=== PATIENT | male | born 1995 | race Asian ===

== ENCOUNTER 2016-12-15 19:55 | Emergency (ER) | payer OTHER, BC ==
[~2016-12-15] VITALS: Ht 172.7 cm; Wt 64.1 kg
[2016-12-15 20:07] VITALS: Ht 172.7 cm; Wt 64.1 kg
[2016-12-15] MEDS ORDERED: XYLOCAINE 1%/SOD BICARB 20 ML VIAL INFIL ONE (20:30)
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
--- NOTE | 2016-12-15 21:51 | DIAGNOSTIC IMAGING REPORT ---
CT HEAD WITHOUT CONTRAST (CT) CLINICAL HISTORY: Closed head injury with loss of consciousness. COMPARISON STUDY: No previous studies for comparison. TECHNIQUE: Axial CT of the brain is performed from the vertex to the skull base. IV contrast was not administered for this examination. CT DOSE: FINDINGS: No intra or extra-axial mass lesions are visualized. There is no CT evidence of acute cortical infarction. There is no evidence of midline shift. There is no acute hemorrhage. No calvarial fractures are visualized. There is no evidence of pathologic ventricular dilatation. There is a prominent cisterna magna. There is a small right maxilla sinus air-fluid level. IMPRESSION: 1. Small right maxillary sinus air-fluid level. 2. No acute intracranial findings. Electronically signed by: Eduardo Zaragoza M.D. 12/15/2016 9:49 PM Dictated Date/Time: 12/15/2016 9:48 PM
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
[2016-12-15 22:34] VITALS: BP 127/68; PULSE 63; TEMP 36.7; O2SAT 100
== END 2016-12-15 22:35 | disposition home or self-care (01) ==
LOC: C.EDA 19:57
DX: S01.01XA Laceration without foreign body of scalp, initial encounter (principal); S60.511A Abrasion of right hand, initial encounter; S60.512A Abrasion of left hand, initial encounter; S80.02XA Contusion of left knee, initial encounter; H11.31 Conjunctival hemorrhage, right eye; M25.462 Effusion, left knee; V13.9XXA Unspecified pedal cyclist injured in collision with car, pick-up truck or van in traffic accident, initial encounter

== ENCOUNTER 2016-12-17 13:20 | Emergency (ER) | payer OTHER, BC ==
[2016-12-17 13:25] VITALS: Ht 172.7 cm
[2016-12-17] MEDS ORDERED: IBUPROFEN 600 MG TAB PO STA (14:24)
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
[2016-12-17] MEDS ORDERED: IBUP-1451 PO (15:41)
[2016-12-17 15:57] VITALS: BP 91/62; PULSE 67; TEMP 36.9; O2SAT 98
== END 2016-12-17 15:58 | disposition home or self-care (01) ==
LOC: C.EDB 13:23 → C.EDA 15:58
DX: S09.90XD Unspecified injury of head, subsequent encounter (principal); S16.1XXD Strain of muscle, fascia and tendon at neck level, subsequent encounter; S89.92XD Unspecified injury of left lower leg, subsequent encounter; V19.40XD Pedal cycle driver injured in collision with unspecified motor vehicles in traffic accident, subsequent encounter

== ENCOUNTER → 2017-02-03 | Outpatient (CLI) | payer BC ==
[~2017-02-03] MED LIST: IBUP-1451 PO
--- NOTE | 2017-02-03 17:49 | DIAGNOSTIC IMAGING REPORT ---
MRI OF THE BRAIN WITHOUT IV CONTRAST CLINICAL HISTORY: Postconcussion syndrome. Headache. Nausea. Blurred vision. COMPARISON STUDY: CT of the brain dated 12/15/2016. TECHNIQUE: MRI of the brain was performed utilizing various T1 and T2-weighted sequences in the axial, sagittal, and coronal planes. IV contrast was not administered for this examination. FINDINGS: Brain parenchyma: The brain parenchyma is normal in appearance. There is no hemorrhage or mass effect. There is no restricted diffusion to suggest acute ischemia. Anderson-white matter differentiation is preserved. No extra-axial fluid collection is seen. The cerebellar tonsils are normal in configuration. Ventricles, sulci, and cisterns: Normal in configuration. Megacisterna magna is incidentally noted. Pituitary and sella: Unremarkable. Intracranial vasculature: Normal flow voids are maintained at the skull base. Orbits: The bony orbits are grossly intact. Orbital contents are normal in appearance. Sinuses and mastoids: There are small retention cysts within the maxillary antra. The paranasal sinuses and the mastoid air cells are otherwise clear. Calvarium: Unremarkable. Cervical cord: Partially visualized cervical spinal cord is normal in morphology and signal intensity. IMPRESSION: No acute intracranial abnormality. Electronically signed by: Lukas Bah M.D. 02/03/2017 5:47 PM Dictated Date/Time: 02/03/2017 5:43 PM
== END | disposition home or self-care (01) ==
LOC: C.MRI 16:37
PROVIDERS: ATTEND Family Medicine
DX: F07.81 Postconcussional syndrome (principal); M54.2 Cervicalgia